=== PATIENT | male | born 1985 | race Two or more races ===

== ENCOUNTER 2018-08-20 08:35 | Day surgery (SDC) | payer OTHER ==
[~2018-08-20 08:35] MED LIST: NON
== END 2018-08-20 11:45 | disposition home or self-care (01) ==
LOC: AMB-ENDOS 08:35
DX: D13.2 Benign neoplasm of duodenum (principal); K64.8 Other hemorrhoids; Z12.11 Encounter for screening for malignant neoplasm of colon